=== PATIENT | female | born 1990 | race American Indian/Alaskan Native ===

== ENCOUNTER 2020-10-04 14:38 | Emergency (ER) | payer SELFPAY ==
[2020-10-04 15:53] LABS: Bacteria,Urine 1+ /HPF (Negative); Bilirubin,Urine NEG (Negative); Blood,Urine NEG (Negative); Color,Urine Yellow (Yellow); Protein,Urine <15 mg/dL mg/dL (Negative); Urobilinogen,Urine < 2.0 mg/dL (<2.0)
[2020-10-04] MEDS ORDERED: SODIUM CHLORIDE 0.9% 1000 ML 1,000 ML IV ONE (17:03)
[2020-10-04 17:12] VITALS: BP 116/71
--- NOTE | 2020-10-04 17:14 | Emergency Department Report ---
ED General Adult HPI - General Chief complaint: Urogenital-Female Stated complaint: MIGRAINES,FATIGUE,N/V Time Seen by Provider: 10/04/20 16:28 Source: patient Mode of arrival: Ambulatory Limitations: No Limitations - History of Present Illness Initial comments: The patient was evaluated in the emergency department for symptoms described in the history of present illness. He/she was evaluated in the context of the global COVID-19 pandemic, which necessitated consideration that the patient might be at risk for infection with the virus that causes COVID-19. Institutional protocols and algorithms that pertain to the evaluation of patients at risk for COVID-19 are in a state of rapid change based on information released by regulatory bodies including the CDC and federal and state organizations. These policies and algorithms were followed during the patient's care in the emergency department. Please note that these policies, procedures and recommendations changed on a rapid basis. 30-year-old morbid obese female presents to the emergency room stating that she had been on antibiotics and now is having a yeast infection all over. Patient states that she has increased thirst increased urination increased thick vaginal discharge rash under both arms and pannus. Patient also complains of fatigue nausea vomiting and just falls asleep at any moment. Patient reports that she was recently treated for a strep throat was placed on antibiotics. Patient has a past medical history of hypertension. Onset/Timin -: days(s) Location: abdomen (Pannus), genitals, left, right, upper extremity (Axillary) Consistency: constant Improves with: none Worsens with: medication Associated Symptoms: malaise, nausea/vomiting, rash Treatments Prior to Arrival: none - Related Data Previous Rx's Medication Instructions Recorded Last Taken Type metFORMIN [Glucophage] 500 mg PO BID #60 tablet 10/04/20 Unknown Rx metroNIDAZOLE [Flagyl] 500 mg PO Q8HR 7 Days #21 tab 10/04/20 Unknown Rx Allergies Allergy/AdvReac Type Severity Reaction Status Date / Time No Known Allergies Allergy Unverified 10/04/20 14:57 ED Review of Systems ROS: Stated complaint: MIGRAINES,FATIGUE,N/V Other details as noted in HPI Comment: All other systems reviewed and negative ED Past Medical Hx - Past Medical History Previous Medical History?: Yes Hx Hypertension: Yes - Surgical History Past Surgical History?: No - Medications Home Medications: Home Medications Medication Instructions Recorded Confirmed Last Taken Type metFORMIN [Glucophage] 500 mg PO BID #60 tablet 10/04/20 Unknown Rx metroNIDAZOLE [Flagyl] 500 mg PO Q8HR 7 Days #21 tab 10/04/20 Unknown Rx ED Physical Exam - General Limitations: No Limitations General appearance: alert, in no apparent distress, obese - Head Head exam: Present: atraumatic, normocephalic - Eye Eye exam: Present: normal appearance - ENT ENT exam: Present: mucous membranes moist - Neck Neck exam: Present: normal inspection, full ROM - Respiratory Respiratory exam: Absent: respiratory distress, accessory muscle use - Cardiovascular Cardiovascular Exam: Present: regular rate, normal rhythm. Absent: systolic murmur, diastolic murmur, rubs, gallop - GI/Abdominal GI/Abdominal exam: Present: soft. Absent: distended - External exam: Present: erythema Speculum exam: Present: vaginal discharge Bi-manual exam: Absent: normal bi-manual exam - Extremities Exam Extremities exam: Present: normal inspection, full ROM - Back Exam Back exam: Present: normal inspection - Neurological Exam Neurological exam: Present: alert, oriented X3, normal gait - Psychiatric Psychiatric exam: Present: normal affect, normal mood - Skin Skin exam: Present: rash (Under both arms mild erythematous) ED Course Vital Signs 10/04/20 10/04/20 17:12 17:40 Temperature 98.3 F Pulse Rate 98 H Respiratory 17 20 Rate Blood Pressure 116/71 [Right] O2 Sat by Pulse 95 Oximetry ED Medical Decision Making - Lab Data Result diagrams: 10/04/20 17:11 10/04/20 17:11 - Medical Decision Making 30-year-old morbid obese female presents to the emergency room stating that she had been on antibiotics and now is having a yeast infection all over. Patient states that she has increased thirst increased urination increased thick vaginal discharge rash under both arms and pannus. Patient also complains of fatigue nausea vomiting and just falls asleep at any moment. Patient reports that she was recently treated for a strep throat was placed on antibiotics. Patient has a past medical history of hypertension. Urinalysis showed glucose greater than 500 therefore this provider ordered a piece of LOC blood sugar CBC CMP and venous pH. It was showed that patient's blood sugar was elevated at 342. Patient was initiated a liter of fluids. Pelvic exam was done sent out for cultures and wet prep wet prep positive for greater than 20% clue cells negative for trichomonas and yeast. Patient will have another [id number] blood glucose check if it has decreased we will discharge patient home on Flagyl and Metformin and a referral to a primary care provider. Also discussed with patient the need to lose weight as she has a BMI of 57.6. Patient eloped prior to being discharged. Critical care attestation.: If time is entered above; I have spent that time in minutes in the direct care of this critically ill patient, excluding procedure time. ED Disposition Clinical Impression: New onset type 2 diabetes mellitus, Bacterial vaginosis Disposition: ELOPED Is pt being admited?: No Does the pt Need Aspirin: No Condition: Stable Instructions: Bacterial Vaginosis, [id number], Type 2 Diabetes Mellitus, Diagnosis, Adult, [id number], Bacterial Vaginosis (ED), Diabetes Mellitus Type 2 in Adults (ED) Additional Instructions: Please complete the antibiotics as prescribed. Take your Metformin for diabetes as prescribed. It is very important for you to follow-up with a primary care provider as I am only able to give you 2-month supply of your Metformin. Prescriptions: metroNIDAZOLE [Flagyl] 500 mg PO Q8HR 7 Days #21 tab metFORMIN [Glucophage] 500 mg PO BID #60 tablet Referrals: PRIMARY CARE, [Primary Care Provider] - 3-5 Days [facility] [Provider Group] - 3-5 Days Forms: STI Treatment and Prevention
[2020-10-04] MEDS ORDERED: KETOROLAC 30 MG/1 ML INJ IV ONE (17:15)
[2020-10-04 17:23] LABS: Basophils # (Auto) 0.1 K/mm3 (0.0-0.1); Basophils % (Auto) 0.8 % (0.0-1.8); Eosinophils # (Auto) 0.4 K/mm3 (0.0-0.4); Eosinophils % (Auto) 3.1 % (0.0-4.3); Hematocrit 42.9 % (30.3-42.9); Hemoglobin 14.5 gm/dl (10.1-14.3); Lymphocytes # (Auto) 3.5 K/mm3 (1.2-5.4); Lymphocytes % (Auto) 27.9 % (13.4-35.0); Mean Corpuscular HGB Conc 34 % (30-34); Mean Corpuscular Volume 89 fl (79-97); Monocytes # (Auto) 0.8 K/mm3 (0.0-0.8); Monocytes % (Auto) 6.2 % (0.0-7.3); Platelet Count 290 K/mm3 (140-440); Red Blood Count 4.84 M/mm3 (3.65-5.03)
[2020-10-04 17:40] LABS: Alanine Aminotransferase 44 units/L (7-56); Albumin 4.1 g/dL (3.9-5); Blood Urea Nitrogen 8 mg/dL (7-17); Calcium 9.4 mg/dL (8.4-10.2); Hemolysis Index 2
[2020-10-04 17:41] LABS: BUN/Creatinine Ratio 13; Bilirubin,Direct < 0.2 mg/dL (0-0.2)
== END 2020-10-04 20:05 | disposition home or self-care (01) ==
LOC: ED 14:38
DX: E11.9 Type 2 diabetes mellitus without complications (principal); N76.0 Acute vaginitis; B96.89 Other specified bacterial agents as the cause of diseases classified elsewhere; I10 Essential (primary) hypertension; Z79.899 Other long term (current) drug therapy
CPT/HCPCS: 36415; 80048; 80076; 81001; 82805; 82962; 85025; 87210; 87591; 96361; 96374; 99284; J1885; J7030